=== PATIENT | female | born 1995 | race Caucasian/White ===

== ENCOUNTER → 2022-11-20 16:28 | Outpatient (CLI) | payer OTHER, SELFPAY ==
[2022-11-20 18:19] LABS: Add Manual Diff / Slide Review NO; Basophils Absolute Auto 0 /uL (0-100); Basophils Percent Auto 0.2 % (0-2); Eosinophils Absolute Auto 200 /uL (0-450); Eosinophils Percent Auto 2.4 % (2-4); Hematocrit 36.3 % (36-46); Hemoglobin 12.8 g/dL (12.0-16.0); Lymphocytes Absolute Auto 2200 /uL (1100-4500); Lymphocytes Percent Auto 23.9 % (25-40); Mean Corpuscular HGB Conc 35.3 % (30-36); Mean Corpuscular Hemoglobin 31.1 PG (26-34); Mean Corpuscular Volume 88.1 fL (80-100); Monocytes Absolute Auto 600 /uL (0-900); Monocytes Percent Auto 6.8 % (3-14); Neutrophils Absolute Auto 6100 /uL (1500-7000); Neutrophils Percent Auto 66.7 % (50-75); Platelet Count 229 X10^3/uL (150-400); Red Blood Cell Count 4.12 X10^6/uL (4.0-5.2); Red Cell Distribution Width 12.1 % (11.6-14.8); White Blood Cell Count 9.1 X10^3/uL (4.5-11.0)
[2022-11-20 19:28] LABS: Hepatitis B Surface Antigen NEGATIVE s/c (NEGATIVE); Rubella Antibody IgG 10.5 IU/mL (>15)
[2022-11-20 19:43] LABS: HIV 1 & 2 Ab/Ag 4th Gen Combo NEGATIVE (NEGATIVE); Hep C Virus Ab w/Reflex Quant NEGATIVE s/c (NEGATIVE)
[2022-11-22 08:11] LABS: RPR Screen Non Reactive (Non Reactive); Varicella IgG Antibody 477 index (Immune >165)
== END ==
PROVIDERS: Referring Provider Obstetrics & Gynecology; Visit Provider Obstetrics & Gynecology
DX: Z34.01 Encounter for supervision of normal first pregnancy, first trimester (principal)
CPT/HCPCS: 36415; 80055; 86787; 86803; 86850; 86900; 86901; 87389

== ENCOUNTER → 2022-12-18 15:49 | Outpatient (CLI) | payer OTHER, SELFPAY ==
[2022-12-18 18:28] LABS: Appearance Urine UA CLEAR; Bilirubin Urine UA NEGATIVE (NEGATIVE); Color Urine UA YELLOW; Glucose Urine UA NEGATIVE (Negative); Ketones Urine UA NEGATIVE (NEGATIVE); Leukocyte Esterase Urine UA NEGATIVE (NEGATIVE); Nitrite Urine UA NEGATIVE (Negative); Occult Blood Urine UA NEGATIVE (Negative); Protein Urine UA NEGATIVE (Negative); Specific Gravity Urine UA <=1.005 (1.000-1.035); Urobilinogen Urine UA 0.2 E.U./dL (0.2); pH Urine UA 5.5 (4.5-8.0)
== END ==
PROVIDERS: Visit Provider Obstetrics & Gynecology
DX: Z34.01 Encounter for supervision of normal first pregnancy, first trimester (principal)
CPT/HCPCS: 81003; 87086

== ENCOUNTER → 2023-01-15 15:26 | Outpatient (CLI) | payer OTHER, SELFPAY ==
--- NOTE | 2023-01-15 15:27 | DI.US.S_ITS ---
PROCEDURE: US OB >= 14 WEEKS FETUS INDICATIONS: 20 WEEK ANATOMY OUTSIDE/PRIOR DATING DATA: Last menstrual period (LMP): 08/27/2022. LMP-based estimated date of delivery (LUIS): 06/03/2023. TECHNIQUE: Real-time scanning was performed of the fetus, with image documentation and biometric measurements. Endovaginal scanning: Not performed COMPARISON: None. FINDINGS: General: A single living intrauterine gestation is present. Presentation: Vertex. Placenta: Placental position is posterior fundal , without previa. Amniotic fluid index: 12.7 cm, normal range is 5-24 cm. Single deepest vertical pocket is 4.1 cm. heart rate: 160 beats per minute. Maternal cervical canal: 3.7 cm long. Normal lower limit is 2.5 cm. biometrics: Biparietal diameter: 4.7 cm, 20 weeks 1 day Head circumference: 17.4 cm, 20 weeks 0 days Abdominal circumference: 15.5 cm, 20 weeks 5 days Femur length: 3.3 cm, 20 weeks 2 days estimated gestational age: 20 weeks 1 day Composite gestational age from present scan: 20 weeks 2 days Estimated weight and percentile: 355 g, 64th percentile Anatomic survey: Neuro: Ventricles are non-dilated at less than 10 mm. Cisterna magna is normal at 3-11 mm. Cerebellum is normal in size and morphology. Nuchal skin fold: Normal at less than 6 mm between 14-21 weeks gestational age. Face: Nose and lips, facial profile are normal. Spine: No evidence for spina bifida. Heart: 4-chambered heart is present, with normal ventricular outflow tracts. Diaphragm: Diaphragm is intact. Stomach: Left-sided stomach is present. Kidneys: No hydronephrosis. Normal is less than 5 mm in 2nd trimester, less than 7 mm in 3rd trimester. Cord: 3-vessel cord has orthotopic insertion. Bladder: Normal in size. Extremities: All 4 extremities identified. IMPRESSION: 1. Single living intrauterine . 2. Normal 2nd trimester anatomy survey. No anomalies detected at this time. We strive to produce accurate, complete, and clear reports of imaging services. To assist us in improving patient care, this report was composed using standard report templates and voice recognition software. Therefore, it may contain abnormal punctuation, insertions and/or omissions. Occasional wrong-word or sound-alike substitutions may occur. Though we review the report and make efforts to correct it, we do recommend that the report be read carefully in proper context to recognize any text inaccuracies. Dictated by: Adalberto John M.D. on 01/16/2023 at 10:50 Approved by: Adalberto John M.D. on 01/16/2023 at 11:28
== END ==
PROVIDERS: Referring Provider Obstetrics & Gynecology; Visit Provider Obstetrics & Gynecology
DX: Z34.82 Encounter for supervision of other normal pregnancy, second trimester (principal); Z3A.20 20 weeks gestation of pregnancy
CPT/HCPCS: 76811

== ENCOUNTER 2023-02-26 17:03 | Outpatient (CLI) | payer OTHER, SELFPAY ==
[2023-02-26 17:50] LABS: Appearance Urine UA CLEAR; Bilirubin Urine UA NEGATIVE (NEGATIVE); Color Urine UA YELLOW; Glucose Urine UA NEGATIVE (Negative); Ketones Urine UA NEGATIVE (NEGATIVE); Leukocyte Esterase Urine UA NEGATIVE (NEGATIVE); Nitrite Urine UA NEGATIVE (Negative); Occult Blood Urine UA NEGATIVE (Negative); Protein Urine UA NEGATIVE (Negative); Specific Gravity Urine UA <=1.005 (1.000-1.035); Urobilinogen Urine UA 0.2 E.U./dL (0.2)
[2023-02-26 17:56] LABS: Bacteria Urine Few (2-10); Culture Indicated Urine Cult Not Indicated; RBC Urine 0-1/HPF (0-5/HPF); WBC Urine 0-1/HPF (0-5/HPF)
[2023-02-26 18:00] VITALS: TEMP 38.2
[2023-02-26] MEDS: ACETAMINOPHEN 325 MG TABLET 650 MG PO (18:00)
[2023-02-26 20:13] LABS: COVID19 -Nasal RAPID Negative (Negative)
== END 2023-02-26 18:16 | disposition home or self-care (01) ==
LOC: LABOR 17:56 → OB 03-05 06:04
PROVIDERS: Family Medicine; Referring Provider Obstetrics & Gynecology; Visit Provider Obstetrics & Gynecology
DX: O47.02 False labor before 37 completed weeks of gestation, second trimester (principal); Z3A.27 27 weeks gestation of pregnancy; Z20.822 Contact with and (suspected) exposure to COVID-19
CPT/HCPCS: 59025; 81001; 87635; C9803; G0378; G0379

== ENCOUNTER → 2023-03-19 14:16 | Outpatient (CLI) | payer OTHER, SELFPAY ==
[2023-03-19 15:57] LABS: Hematocrit 32.3 % (36-46); Hemoglobin 11.2 g/dL (12.0-16.0)
[2023-03-19 16:07] LABS: GTT (PREG) 1 Hour PP 50gm Dose 124 mg/dL (76-139)
--- NOTE | 2023-04-16 15:41 | DI.US.S_ITS ---
PROCEDURE: US OB LIMITED INDICATIONS: HYPERTENSION. GROWTH, PLACENTA, AND AMNIOTIC FLUID OUTSIDE/PRIOR DATING DATA: Last menstrual period (LMP): 08/27/2022 LMP-based estimated date of delivery (LUIS): 06/03/2023 First dating scan (date and location): 10/24/2022 at [facility] Estimated date of delivery (LUIS) from first dating scan: 06/04/2023 The calculations are made using the clinical LUIS of 06/03/2023 TECHNIQUE: Real-time scanning was performed of the fetus, with image documentation and biometric measurements. Biophysical profile was also obtained. Endovaginal scanning: Not performed COMPARISON: [facility], OB <= 14 WEEKS FETUS, 10/24/2022, 15:08. [facility] OB >= 14 WEEKS FETUS, 01/15/2023, 15:37. [facility], OB >= 14 WEEKS FETUS, 03/19/2023, 14:10. FINDINGS: General: A single living intrauterine gestation is present. Presentation: Vertex Placenta: Placental position is posterior fundal, without previa. Amniotic fluid index: 11.2 cm, normal range is 5-24 cm. Single deepest vertical pocket is 4.3 cm. heart rate: 140 beats per minute. Maternal cervical canal: 4.2 cm long. Normal lower limit is 2.5 cm. biometrics: Biparietal diameter: 8.6 cm, 35 weeks 1 day Head circumference: 31.6 cm, 35 weeks 4 days Abdominal circumference: 31.1 cm, 35 weeks 0 days Femur length: 6.8 cm, 35 weeks 0 days Clinically estimated gestational age: 33 weeks 1 day Composite gestational age from present scan: 35 weeks 1 day Estimated weight and percentile: 2592 grams, 92nd percentile IMPRESSION: 1. Single live intrauterine . 2. Estimated weight 2952 grams, 92nd percentile for clinical gestational age. 3. Amniotic fluid index is within normal limits. We strive to produce accurate, complete, and clear reports of imaging services. To assist us in improving patient care, this report was composed using standard report templates and voice recognition software. Therefore, it may contain abnormal punctuation, insertions and/or omissions. Occasional wrong-word or sound-alike substitutions may occur. Though we review the report and make efforts to correct it, we do recommend that the report be read carefully in proper context to recognize any text inaccuracies. Approved by: Adalberto Melchor M.D. on 04/16/2023 at 16:55
== END ==
PROVIDERS: Referring Provider Obstetrics & Gynecology; Visit Provider Obstetrics & Gynecology
DX: Z34.02 Encounter for supervision of normal first pregnancy, second trimester (principal); Z3A.26 26 weeks gestation of pregnancy
CPT/HCPCS: 36415; 82950; 85014; 85018

== ENCOUNTER 2023-04-16 15:37 | Outpatient (CLI) | payer OTHER, SELFPAY ==
[2023-04-16 17:00] LABS: Add Manual Diff / Slide Review NO; Basophils Absolute Auto 0 /uL (0-100); Basophils Percent Auto 0.2 % (0-2); Eosinophils Absolute Auto 200 /uL (0-450); Eosinophils Percent Auto 1.9 % (2-4); Hemoglobin 11.4 g/dL (12.0-16.0); Lymphocytes Absolute Auto 2100 /uL (1100-4500); Lymphocytes Percent Auto 26.5 % (25-40); Mean Corpuscular HGB Conc 34.7 % (30-36); Mean Corpuscular Hemoglobin 30.8 PG (26-34); Mean Corpuscular Volume 88.8 fL (80-100); Monocytes Absolute Auto 700 /uL (0-900); Neutrophils Absolute Auto 5000 /uL (1500-7000); Neutrophils Percent Auto 62.4 % (50-75); Platelet Count 243 X10^3/uL (150-400); Red Blood Cell Count 3.71 X10^6/uL (4.0-5.2); Red Cell Distribution Width 13.7 % (11.6-14.8); White Blood Cell Count 8.1 X10^3/uL (4.5-11.0)
[2023-04-16 17:11] LABS: Aspartate Aminotransferase 39 IU/L (14-36); BUN Creatinine Ratio 8.7 (6-22); Blood Urea Nitrogen 4 mg/dL (7-17); Estimated Glomerular Filt Rate > 60 mL/min (>60); Uric Acid 4.1 mg/dL (2.5-6.2)
[2023-04-16 17:47] LABS: Creatinine Urine Random 10.8 mg/dL; Protein (Total) Urine Random 15 mg/dL (0-12); Protein Creatinine Ratio Urine 1.38 GRAM/24H
== END 2023-04-16 17:34 | disposition home or self-care (01) ==
LOC: LABOR 17:28 → OB 04-20 06:08
PROVIDERS: Referring Provider Obstetrics & Gynecology; Visit Provider Obstetrics & Gynecology
DX: O13.3 Gestational [pregnancy-induced] hypertension without significant proteinuria, third trimester (principal); Z3A.33 33 weeks gestation of pregnancy
CPT/HCPCS: 59025; 76815; 82570; 84156; 84450; 84550; 85025; G0378; G0379

== ENCOUNTER → 2023-05-07 16:30 | Outpatient (CLI) | payer OTHER, SELFPAY ==
[2023-05-08 14:50] LABS: Strep Grp B PCR NEG for Grp B Strep
== END ==
PROVIDERS: Visit Provider Obstetrics & Gynecology
DX: Z34.03 Encounter for supervision of normal first pregnancy, third trimester (principal); Z3A.36 36 weeks gestation of pregnancy
CPT/HCPCS: 87653

== ENCOUNTER 2023-05-07 17:05 | Observation (INO) | payer OTHER, SELFPAY ==
--- NOTE | 2023-05-07 18:02 | PM.OBTRLD ---
Visit Information Visit Information Date of evaluation: 05/07/23 Primary OB Provider: Renetta Harris On-call OB Provider: Renetta Harris Reason for Evaluation: Yes non-stress test non-stress test reason: decreased movement [facility] Medical History (Updated 04/23/23 @ 14:06 by Renetta Harris MD) Allergies (~2018) Eczema (~2019) Migraine with aura (~2011) Surgical History (Updated 10/09/22 @ 15:42 by Betina Galarza RN) [place] teeth extracted Family History (Updated 10/23/22 @ 21:23 by Tyra Dalal) Father Cancer of retina Myocardial infarction Aortic aneurysm Grandmother Cancer Social History marital status: number of children: 0 household members: spouse and family ('s mother and sister) lives independently: Yes caregiver/support person: No housing: house pets and animals: Yes (4 cats and 2 dogs; aware of toxo precautions) education level: high school 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[employer]) current occupational exposures/hazards: No special carly needs: No travel history: recent ([place]) seatbelt use: always helmet use: Yes water heater temp set < 120 deg: Yes working smoke detector in home: Yes fire extinguisher in home: Yes carbon monox detector in home: Yes firearms in home: Yes firearms unloaded and locked: Yes do you feel safe at home: Yes Smoking Status: Former smoker (Quit vaping in August) second hand exposure: Yes ( smokes, but not in the house or around pt) alcohol intake: former (3-4/week when not ) substance use type: marijuana (not while ) during the past year weight has: remained stable well-balanced diet: about half the time daily servings fruits/ve-4 caffeine: Yes (Aware of 200mg limit) additional social history: Ordered an exercise bike, planning to start riding that when it arrives. Evaluation Evaluation Baseline heart rate: 145 Variability: Moderate (11-25) monitor accelerations: Present Monitor Decelerations: Absent Category of Tracing: Reactive Diagnosis, Plan/Disposition Plan/Disposition Plan: Assessment: 27-year-old 1 para 0 at 36 weeks gestation with decreased movement Reactive nonstress test Plan: Discharge to home Follow-up in 1 week for scheduled section kick counts discussed OB Disposition: home
== END 2023-05-07 18:00 | disposition home or self-care (01) ==
LOC: LABOR 17:06
PROVIDERS: Admitting Provider Obstetrics & Gynecology; Referring Provider Obstetrics & Gynecology; Visit Provider Obstetrics & Gynecology
DX: O36.8130 Decreased fetal movements, third trimester, not applicable or unspecified (principal); Z3A.36 36 weeks gestation of pregnancy; Z34.03 Encounter for supervision of normal first pregnancy, third trimester
CPT/HCPCS: 59025; 87653; G0378; G0379

== ENCOUNTER 2023-05-14 06:00 | Inpatient (IN) | payer OTHER, SELFPAY ==
[2023-05-14 07:03] LABS: Add Manual Diff / Slide Review NO; Basophils Absolute Auto 0 /uL (0-100); Basophils Percent Auto 0.4 % (0-2); Eosinophils Absolute Auto 100 /uL (0-450); Eosinophils Percent Auto 1.4 % (2-4); Hematocrit 35.4 % (36-46); Hemoglobin 12.1 g/dL (12.0-16.0); Lymphocytes Absolute Auto 1800 /uL (1100-4500); Lymphocytes Percent Auto 23.8 % (25-40); Mean Corpuscular HGB Conc 34.1 % (30-36); Mean Corpuscular Hemoglobin 30.4 PG (26-34); Mean Corpuscular Volume 89.2 fL (80-100); Monocytes Absolute Auto 700 /uL (0-900); Monocytes Percent Auto 8.9 % (3-14); Neutrophils Absolute Auto 5000 /uL (1500-7000); Neutrophils Percent Auto 65.5 % (50-75); Platelet Count 212 X10^3/uL (150-400); Red Blood Cell Count 3.97 X10^6/uL (4.0-5.2); Red Cell Distribution Width 14.8 % (11.6-14.8); White Blood Cell Count 7.6 X10^3/uL (4.5-11.0)
[2023-05-14 07:16] VITALS: BP 136/76
--- NOTE | 2023-05-14 07:30 | P.HPOB_ITS ---
OB HPI Date/Time Date of admission: 05/14/23 Date Patient Seen: 05/14/23 Time Patient Seen: 07:31 History of Present Condition Chief complaint: Section LUIS Calculator Estimated Delivery Date Method Current WG Current Estimate 06/04/23 LMP (Certain) 37w 0d Other Estimates 06/04/23 Ultrasound #1 37w 0d Estimated Gestational Age (weeks): 37 : 1 Para: 0 care: good care, initiated at week # (8), number of visits and pounds weight gain (51) Dating criteria OB: LMP confirmed by 1st trimester US Ultrasounds: normal 1st trimester US and normal mid trimester US Obstetrical complications: gestational hypertension Medical complications OB: none Preadmission Labs Last OB Lab Results: Blood Type A Positive 11/20/22 17:27 Antibody Screen Negative 11/20/22 17:27 Hematocrit 35.4 % (36-46) L 05/14/23 06:30 Hemoglobin 12.1 g/dL (12.0-16.0) 05/14/23 06:30 Hepatitis B Surface Antigen Negative s/c (NEGATIVE) 11/20/22 17 :27 Hepatitis C Antibody Negative s/c (NEGATIVE) 11/20/22 17:27 Rubella Antibody 10.5 IU/mL (>15) L 11/20/22 17:27 Varicella-Zoster IgG Antibody 477 index (Immune >165) 11/20/22 17:27 Glucose 1 Hour 124 mg/dL (76-139) 03/19/23 14:19 Group B Streptococcus (PCR) Neg for grp b strep 05/07/23 16:30 -: Chlamydia screen: negative, Gonorrhea screen: negative and Urine: negative -: PAP smear: Normal External Labs -: Urine: negative Evaluation Evaluation Baseline heart rate: 120 Variability: Moderate (11-25) monitor accelerations: Present Monitor Decelerations: Absent Category of Tracing: Reactive [facility] Medical History (Updated 04/23/23 @ 14:06 by Renetta Harris MD) Allergies (~2018) Eczema (~2019) Migraine with aura (~2011) Surgical History (Updated 10/09/22 @ 15:42 by Betina Galarza RN) [place] teeth extracted Family History (Updated 10/23/22 @ 21:23 by Tyra Dalal) Father Cancer of retina Myocardial infarction Aortic aneurysm Grandmother Cancer Social History marital status: number of children: 0 household members: spouse and family ('s mother and sister) lives independently: Yes caregiver/support person: No housing: house pets and animals: Yes (4 cats and 2 dogs; aware of toxo precautions) education level: high school 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 occupational exposures/hazards: No special carly needs: No travel history: recent ([place]) seatbelt use: always helmet use: Yes water heater temp set < 120 deg: Yes working smoke detector in home: Yes fire extinguisher in home: Yes carbon monox detector in home: Yes firearms in home: Yes firearms unloaded and locked: Yes do you feel safe at home: Yes Smoking Status: Former smoker second hand exposure: Yes ( smokes, but not in the house or around pt) alcohol intake: former (3-4/week when not ) substance use type: marijuana (not while ) during the past year weight has: remained stable well-balanced diet: about half the time daily servings fruits/ve-4 caffeine: Yes (Aware of 200mg limit) additional social history: Ordered an exercise bike, planning to start riding that when it arrives. Meds Home Medications and Allergies Home Medications Medication Instructions Recorded Confirmed Type prenat.vits,robert,pay-rwdw-wvohc 1 tab PO DAILY 10/09/22 05/07/23 History ondansetron 4 mg disintegrating 4 mg PO Q6H PRN nausea and 10/24/22 05/07/23 Rx tablet vomiting #20 tabs sumatriptan succinate 50 mg tablet See Rx Instructions PO .COMPLEX 12/15/22 05/07/23 Rx (Imitrex) #10 tabs Allergies Allergy/AdvReac Type Severity Reaction Status Date / Time No Known Drug Allergies Allergy Unverified 05/07/23 16:13 OB Exam Narrative Exam Narrative: Generally: Patient lying in bed, no acute distress Lungs: Clear to auscultation bilaterally Cardiovascular: Regular rate and rhythm Fundal height: 38 cm Estimated weight: 7 lb Extremities: 1+ pitting edema to her knees, 3+ DTRs, 1 beat of clonus Objective Labs 05/14/23 06:30 Labs: Laboratory Results - last 24 hr 05/14/23 06:30 WBC 7.6 RBC 3.97 L Hgb 12.1 Hct 35.4 L MCV 89.2 MCH 30.4 MCHC 34.1 RDW 14.8 Plt Count 212 Neut % (Auto) 65.5 Lymph % (Auto) 23.8 L [place] % (Auto) 8.9 Eos % (Auto) 1.4 L Baso % (Auto) 0.4 Neut # (Auto) 5000 Lymph # (Auto) 1800 [place] # (Auto) 700 Eos # (Auto) 100 Baso # (Auto) 0 Assessment and Plan Assessment and Plan Assessment and Plan narrative: Assessment: 27-year-old 1 para 0 at 37 weeks gestation with gestational hypertension Significant swelling this morning, preeclampsia labs sent Desires primary section Plan: Primary low-transverse section The risks, benefits, and alternatives to the procedure were explained to the patient. The risks including bleeding, infection, injury to the bowel, bladder, or ureters. She understands these risks and agrees to proceed. A full par Q was held and consent form was signed. Time Spent with Patient Total time spent with greater than 50% in coordination of care (as documented) at patient's floor/unit and/or counseling patient:: 15-24 minutes
--- NOTE | 2023-05-14 07:38 | PM.PREOP ---
Pre-operative Note Interval Note History & Physical reviewed/Exam performed by Physician: Yes Changes to H&P: No H&P completed within 30 days and has changed as indicated here:: 05/14/23
[2023-05-14] MEDS: CITRIC ACID/SODIUM CITRATE 15 ML SOLUTION 30 ML PO (07:50)
[2023-05-14] MEDS: CEFAZOLIN 2 GM/100 ML PREMIX 100 ML IV (08:05)
--- NOTE | 2023-05-14 08:29 | SUR.OPER ---
Supine on padded OR bed, head on pillow, arms secured on padded arm boards at <90 degrees abduction, legs uncrossed, safety belt at thigh, tape over blanket over lower legs. Bump under right flank
[2023-05-14 08:39] LABS: Alanine Aminotransferase 18 IU/L (<35); Albumin 3.2 g/dL (3.5-5.0); Albumin Globulin Ratio 1.1 (1.0-2.8); Alkaline Phosphatase 151 U/L (38-126); Aspartate Aminotransferase 21 IU/L (14-36); BUN Creatinine Ratio 6.3 (6-22); Bilirubin Total 0.3 mg/dL (0.2-1.3); Bilirubin Unconjugated 0.2 mg/dL (0.0-1.1); Blood Urea Nitrogen 3 mg/dL (7-17); Calcium 8.1 mg/dL (8.4-10.2); Carbon Dioxide 20 mmol/L (22-32); Chloride 106 mmol/L (98-107); Estimated Glomerular Filt Rate > 60 mL/min (>60); Globulin 2.9 g/dL (1.7-4.1); Glucose 84 mg/dL (70-100); HEMOLYSIS 19 (0-50); Potassium 3.9 mmol/L (3.4-5.1); Sodium 132 mmol/L (137-145); Total Protein 6.1 g/dL (6.3-8.2)
[2023-05-14 09:20] VITALS: BP 107/70; PULSE 85; RESP 16; TEMP 36.1; O2SAT 99
--- NOTE | 2023-05-14 09:23 | PM.OBCS.1 ---
Operative Date/Time/Diagnoses Date of procedure: 05/14/23 Time of procedure: 09:23 Pre-op diagnosis: 37 weeks gestation Gestational hypertension Desires primary section Post-op diagnosis: same Procedure & Clinicians Procedure: Primary low-transverse section Same procedure as scheduled: Yes Indications: 37 weeks gestation Desires primary section Gestational hypertension Surgeon: Renetta Griffin Yes if Unassisted: No Auger Press Operator: Lashon Faria Reason for Auger Press Operator: The librarian assistant was necessary to retract upon entry into the abdomen and uterus. She assisted with fundal pressure on delivery of the . She assisted with closure with retraction and clipping of suture. She closed the contralateral fascia. Anesthesia Type: Spinal (With Duramorph) Operative Notes Findings: Live female infant Normal uterus, tubes and ovaries Closure Type: primary Specimen(s): cord blood and placenta Intraoperative meds administered: Duramorph, Ketorolac and Pitocin Applied: Catheter (To continuous drainage) Estimated Blood Loss (mL): 350 Blood products transfused: none Procedure in detail: The patient was taken to the operating room where she was placed in the seated position. Spinal anesthesia with Duramorph was administered. She was then placed in the dorsal supine position with a leftward tilt. She was prepped and draped in the usual sterile fashion. A timeout was performed. After spinal analgesia was found to be adequate, a Pfannenstiel skin incision was made 2 fingerbreadths above the pubic symphysis and carried through to the underlying layer fascia. The fascia was nicked in the midline, and the incision extended bilaterally with the Diaz scissors. The superior aspect of the fascial incision was grasped with a Kirstin clamps, elevated, and the underlying rectus muscles dissected off sharply and bluntly. Attention was then turned to the inferior aspect of this incision which in a similar fashion was grasped with a Kirstin clamps, elevated, and the underlying rectus muscles dissected off sharply and bluntly. The rectus muscles were in the midline. The peritoneum was identified, grasped between 2 hemostats, and entered sharply with the Metzenbaum scissors. This incision was extended superiorly and inferiorly with good visualization of the bladder. The bladder blade was inserted. The vesicouterine peritoneum was identified, grasped with the pickup, and entered sharply with the Metzenbaum scissors. This incision was extended bilaterally, and the bladder flap was created digitally. The bladder blade was reinserted. The lower uterine segment was incised in a transverse fashion with the scalpel. Upon entering the amniotic sac there was a large amount of clear amniotic fluid. The 's head was delivered without difficulty. The nose and mouth were suctioned with bulb suction. The remainder of the body delivered without difficulty. The cord was double clamped and cut. The was handed off to waiting RN and RT. The placenta was delivered manually. The uterus was cleared of all clots and debris. The uterine incision was repaired with #1 chromic in a running interlocking fashion, and a second layer the same suture was used for an imbricating layer. stasis Hemostasis was achieved. The tubes and ovaries were examined and were found to be normal. The gutters were cleared of all clots and debris. The bladder flap was reapproximated using 2-0 Vicryl in a running fashion. The parietal peritoneum was closed using 2-0 Vicryl in a running fashion. The fascia was reapproximated using 0 Vicryl in a running fashion. The subcutaneous layer was copiously irrigated with warm normal saline. 5 simple interrupted sutures of 3-0 Vicryl were placed to reapproximate the subcutaneous layer. The skin was closed with 4-0 Monocryl in a subcuticular fashion. Steri-Strips were placed. An Aquacel dressing was placed. The uterus was expressed of a small amount of old blood. Sponge, lap, and instrument counts were correct x-2. The patient tolerated the procedure well, and was taken to PACU in stable condition. Complications: none [place] Baby 1: Infant Gender: Female Presentation: vertex Position: Left Occiput Anterior Placental Delivery Description: Expressed Cord Vessel Description: 3 Vessels, Nuchal Cord (x1), Reduced and Clamped/Cut (after 1 minute) score (1 min): 8 score (5 min): 9 weight: 7 lb 4.4 oz Post-operative Condition: stable Disposition: PACU Aftercare: routine postop
[2023-05-14 09:25] VITALS: BP 122/75; PULSE 90; RESP 16; O2SAT 99
[2023-05-14 09:30] VITALS: BP 101/70; PULSE 18; RESP 99; TEMP 36.1
[2023-05-14] MEDS: HYDROMORPHONE 1 MG INJ IV (11:18)
[2023-05-14] MEDS: ONDANSETRON 4 MG/2 ML INJ IV (12:51)
[2023-05-14] MEDS: KETOROLAC 30 MG/ML VIAL IV ×2 (15:36→21:40)
[2023-05-14] MEDS: ACETAMINOPHEN 325 MG TABLET 650 MG PO ×2 (16:16→21:41)
[2023-05-15] MEDS: KETOROLAC 30 MG/ML VIAL IV (03:46)
[2023-05-15] MEDS: ACETAMINOPHEN 325 MG TABLET 650 MG PO ×4 (03:48→21:23)
[2023-05-15 06:14] LABS: Add Manual Diff / Slide Review NO; Basophils Absolute Auto 0 /uL (0-100); Basophils Percent Auto 0.2 % (0-2); Eosinophils Absolute Auto 100 /uL (0-450); Eosinophils Percent Auto 1.4 % (2-4); Hematocrit 29.5 % (36-46); Hemoglobin 10.1 g/dL (12.0-16.0); Lymphocytes Absolute Auto 1600 /uL (1100-4500); Mean Corpuscular HGB Conc 34.1 % (30-36); Mean Corpuscular Hemoglobin 30.7 PG (26-34); Mean Corpuscular Volume 90.2 fL (80-100); Monocytes Absolute Auto 700 /uL (0-900); Monocytes Percent Auto 8.1 % (3-14); Neutrophils Absolute Auto 6000 /uL (1500-7000); Neutrophils Percent Auto 71.3 % (50-75); Platelet Count 168 X10^3/uL (150-400); Red Blood Cell Count 3.27 X10^6/uL (4.0-5.2); Red Cell Distribution Width 14.9 % (11.6-14.8); White Blood Cell Count 8.4 X10^3/uL (4.5-11.0)
[2023-05-15] MEDS: IBUPROFEN 600 MG TABLET PO ×3 (09:00→21:25)
[2023-05-15] MEDS: OXYCODONE IR 5 MG TABLET PO ×2 (10:33→14:51)
[2023-05-15] MEDS: DOCUSATE 100 MG CAPSULE PO (12:13)
[2023-05-15] MEDS: PRENATAL VIT,CALC/IRON/FOLIC 1 TABLET 1 TAB PO (12:17)
[2023-05-15] MEDS: LANOLIN OINT 7 GM 1 APPLIC TOP (21:20)
[2023-05-16] MEDS: IBUPROFEN 600 MG TABLET PO ×2 (03:40→09:21)
[2023-05-16] MEDS: OXYCODONE IR 5 MG TABLET PO ×2 (03:40→09:23)
[2023-05-16] MEDS: ACETAMINOPHEN 325 MG TABLET 650 MG PO ×2 (03:40→09:22)
[2023-05-16] MEDS: PRENATAL VIT,CALC/IRON/FOLIC 1 TABLET 1 TAB PO (09:04)
[2023-05-16] MEDS: DOCUSATE 100 MG CAPSULE PO (09:04)
[2023-05-16] MEDS: MEASLES,MUMPS,RUBELLA VACC/PF 0.5 ML VIAL SUBCUT (14:20)
[2023-05-16 15:09] VITALS: BP 138/91; PULSE 17; RESP 96; TEMP 37
--- NOTE | 2023-05-19 11:48 | PM.OBPN.1 ---
Subjective - OB Subjective Patient comments: incisional pain baby status: doing well feeding status: breast and bottle feeding Date Patient Seen: 05/15/23 Time Patient Seen: 09:30 Interval history: Patient is a 27-year-old postop day # 1 status post primary section. She is having incisional pain. She has voided without the catheter. She is tolerating a diet. No nausea or vomiting. Exam Vital Signs (past 8 hours): Oxygen Delivery Method Room Air Narrative Exam Narrative: Generally: Patient is sitting up in bed, no acute distress Lungs: Clear to auscultation bilaterally Cardiovascular: Regular rate and rhythm Fundus: Firm at U -1 Incision: Clean dry and intact with Aquacel dressing Extremities: 1+ edema, negative Homans Objective Labs 05/15/23 06:02 05/14/23 08:20 Assessment & Plan Plan day: 1 plan OB: routine postop care Time Spent With Patient Time: Total time spent is greater than 50% in coordination of care (as documented) at patient's floor/unit and/or counseling patient: Time with patient: less than 15 minutes
--- NOTE | 2023-05-19 11:50 | P.DS_ITS ---
Discharge Providers Provider Date of admission: 05/14/23 06:00 Discharge Date: 05/16/23 Primary care physician: Doctor Linda MD Consults: 05/14/23 10:18 Consult to Industry Segment Specialist Routine Comment: Discharge provider: Renetta Harris MD Summary Hospital Course Date Patient Seen: 05/16/23 Time Patient Seen: 07:45 Diagnoses: 37 weeks gestation Gestational hypertension Desires primary section Primary low-transverse section Hospital Course: Patient is a 27-year-old who underwent a primary section on May 14, 2023 due to gestational hypertension, and her desire for primary . Her postoperative course was unremarkable. She was discharged home on May 16, 2023. She was tolerating a diet. going well. She was ambulating without assistance. Her bleeding was tapering. Her pain was well controlled. Peripartum Data Delivery Method: Section Procedures: Spinal anesthesia Primary low-transverse section complications: none [place] 1: Gender: Female Disposition of : home Status at Discharge Cognitive/behavioral status at discharge: oriented Functional status at discharge: independent ambulation Overall status at discharge: patient is progressing back to baseline Time Spent with Patient Time attestation: Total time spent providing and/or coordinating discharge services: Time spent: Less than 30 minutes Objective Labs 05/15/23 06:02 05/14/23 08:20 Exam Vital Signs (past 8 hours): Oxygen Delivery Method Room Air Narrative Exam Narrative: Generally: Patient is sitting up in bed, no acute distress Lungs: Clear to auscultation bilaterally Cardiovascular: Regular rate and rhythm Fundus: Firm at U -1 Incision: Clean dry and intact with Aquacel dressing Extremities: 1+ edema, negative Homans Discharge Plan Discharge Plan Patient Disposition: Home Provider Discharge Comment: Call with fever, chills, redness or drainage around the incision, or bleeding vaginally more than a pad in an hour Ibuprofen 600 mg every 6 hours as needed Tylenol 650 mg every 6 hours as needed Push oral fluids Stool softeners until bowel returns to normal Discharge orders & Medications Prescriptions: New oxycodone 5 mg tablet 5 mg PO Q4H PRN (Reason: pain) Qty: 20 0RF Continued sumatriptan succinate [Imitrex] 50 mg tablet See Rx Instructions PO .COMPLEX Qty: 10 1RF Rx Instructions: take 1 tab at onset of headache; if no relief may repeat 1 tab after at least 2 hrs; max = 4 tabs/24 hr PO prenat.vits,robert,oqq-guhi-ioldt Tablet 1 tab PO DAILY Discontinued ondansetron 4 mg tablet,disintegrating 4 mg PO Q6H PRN (Reason: nausea and vomiting) Qty: 20 3RF Follow up/Referrals: Renetta Harris MD [Physician] - 3-5 Days (Please follow up for your dressing removal on May 18 @1:15pm. Please call the clinic with any questions ) Diet/Activity/Treatments Diet: Regular Activity: No heavy lifting Skin/Wound/Dressing Care Report to your healthcare provider any signs of infection, such as:: chills, fever, increased pain, unusual drainage and unusual redness Visit Report/Discharge Packet Instructions: DI for , DI for Prescription Opioid Use Stand Alone Forms: Discharge: Care, Patient Portal/API, Stroke Signs & Symptoms Discharge Data Primary Care Provider: Miscellaneous,Doctor Discharges patient from system. Discharge Date/Time: 05/16/23 15:00
== END 2023-05-16 15:00 | disposition home or self-care (01) | DRG 788 ==
PROVIDERS: Admitting Provider Obstetrics & Gynecology; Referring Provider Obstetrics & Gynecology; Visit Provider Obstetrics & Gynecology
PROC: 10D00Z1 Extraction of Products of Conception, Low, Open Approach (ICD-10-PCS; CPT 59514; principal; 2023-05-14 07:45)
DX: O13.4 Gestational [pregnancy-induced] hypertension without significant proteinuria, complicating childbirth (principal); Z3A.37 37 weeks gestation of pregnancy; Z37.0 Single live birth
CPT/HCPCS: 36415; 59050; 59510; 59514; 80048; 80076; 84550; 85025; 86850; 86900; 86901; J0690; J1170; J1885; J2274; J2405; J2590; J3010